=== PATIENT | female | born 2000 | race Caucasian/White ===

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

== ENCOUNTER 2021-11-08 16:58 | Emergency (ER) | payer OTHER ==
[~2021-11-08] VITALS: Ht 170.2 cm; Wt 81.2 kg
[2021-11-08 17:04] VITALS: BP 138/83
[2021-11-08 17:33] VITALS: BP 138/83
--- NOTE | 2021-11-08 17:44 | NUR ---
Patient discharged with v/s stable. Written and verbal after care instructions given and explained. Patient verbalized understanding. Ambulatory with steady gait. All questions addressed prior to discharge. Advised to follow up with PMD.
== END 2021-11-08 17:33 | disposition home or self-care (01) ==
LOC: MED 16:58
DX: L60.8 Other nail disorders (principal); Z00.00 Encounter for general adult medical examination without abnormal findings
CPT/HCPCS: 99281